=== PATIENT | male | born 1940 | race Caucasian/White ===

== ENCOUNTER 2018-02-14 12:44 | Outpatient (CLI) | payer MEDICARE, SELFPAY ==
[2018-02-14 14:10] LABS: Hemoglobin A1C 7.4 % (4.5-6.2)
[2018-02-15 17:23] LABS: Fructosamine 295 mcmol/L (200 - 285)
== END 2018-02-14 13:04 ==
PROVIDERS: PCP Internal Medicine; Visit Provider Internal Medicine Endocrinology, Diabetes & Metabolism
DX: E11.65 Type 2 diabetes mellitus with hyperglycemia (principal)
CPT/HCPCS: 36415; 82985; 83036